=== PATIENT | male | born 1990 | race Caucasian/White ===

== ENCOUNTER 2021-04-11 09:52 | Outpatient (CLI) | payer OTHER, SELFPAY ==
--- NOTE | 2021-04-11 10:04 | XR_ITS ---
WS: [id number] Exam: XR hand RT min 3V* [id number] Date/Time of Exam: 04/11/2021 10:04 AM Reason For Exam: FINGER PAIN, RIGHT Findings: No fractures, soft tissue swelling, or unusual calcifications are noted. The hand shows normal bony alignment. There is no irregularity of the bony architecture. XR/XR hand RT min 3V* [id number] IMPRESSION: Normal right hand.
== END 2021-04-11 09:53 | disposition home or self-care (01) ==
PROVIDERS: Visit Provider Clinical Nurse Specialist Adult Health
DX: M79.644 Pain in right finger(s) (principal)
CPT/HCPCS: 73130